=== PATIENT | female | born 1965 | race Caucasian/White ===

== ENCOUNTER 2023-09-29 17:41 | Emergency (ER) | payer MEDICAID, MEDICARE, SELFPAY ==
[2023-09-29] MEDS ORDERED: Sodium Chloride 0.9% 1,000 ML ONE ×2 (18:18→20:04)
== END 2023-09-29 20:40 | disposition home or self-care (01) ==
LOC: NAV ERS 17:41
DX: F10.129 Alcohol abuse with intoxication, unspecified (principal); I95.1 Orthostatic hypotension; Y90.9 Presence of alcohol in blood, level not specified
CPT/HCPCS: 99284; J7050